=== PATIENT | female | born 1990 | race Caucasian/White ===

== ENCOUNTER 2016-08-08 14:33 | Emergency (ER) | payer BC, OTHER ==
[~2016-08-08] VITALS: Ht 170.1 cm; Wt 106.1 kg
[~2016-08-08 14:33] MED LIST: ABILIFY10 MG PO; ABILIFY30 MG; ABILIFY30 MG PO; AMOXIL500 MG PO; ANAPROX DS550 MG PO; AUGMENTIN PO; BUSPAR5 MG PO; CYCLOBENZAPRINE5 M3 PO; DOLOBID500 MG PO; HYDROCODONE BIT1 T11 PO; IBU800 M1 PO; K-Dur 20MEQ20 MEQ PO; KETOROLAC10 MG PO; MACROBID100 M1 PO; MEDROL DOSEPAK4 MG PO; MOTRIN800 MG PO; Motrin,Rufen800 MG PO; NAPROSYN500 MG PO; NKHM PO; PERCOCET 325 MG1 TA2 PO; PRENATAL1 TA1 PO; PREVACID15 MG PO; PRILOSEC10 MG PO; PRILOSEC20 M1 PO; PROAIR HFA0.09 MG/AC IH; SEROQUEL XR150 MG PO; SPRINTEC 35 MCG1 TA1 PO; TRAMADOL50 MG PO; TRAZODONE100 MG PO; VENTOLIN0.09 MG/AC INH; VISTARIL25 MG PO; WELLBUTRIN XL300 MG; WELLBUTRIN XL300 MG PO; Wellbutrin Sr100 MG PO; ZITHROMAX Z PA250 MG PO; ZOFRAN ODT4 MG SL
[2016-08-08] MEDS ORDERED: TRINTELLIX10 MG PEG (14:44)
[2016-08-08] MEDS ORDERED: LATU20TA PO (14:44)
[2016-08-08] MEDS ORDERED: AMOXICILLIN500 M2 PO (16:53)
[2016-08-08] MEDS ORDERED: MEDROL DOSEPAK4 MG PO (16:53)
[2016-08-08] MEDS ORDERED: ZYRTEC10 MG PO (16:53)
== END 2016-08-08 17:13 | disposition home or self-care (01) ==
LOC: ED 14:33
DX: J45.909 Unspecified asthma, uncomplicated (principal); Z79.899 Other long term (current) drug therapy

== ENCOUNTER → 2017-03-16 | Emergency (ER) | payer BC ==
[~2017-03-16] VITALS: Ht 170.1 cm; Wt 101.6 kg
[~2017-03-16] MED LIST changes: +AMOXICILLIN500 M2 PO; +DIFLUCAN150 MG PO; +LATU20TA PO; +LEVAQUIN250 M1 PO; +TRINTELLIX10 MG PEG; +VIBRAMYCIN100 MG PO; +ZYRTEC10 MG PO
[2017-03-16 09:35] LABS: BILIRUBIN 1+ (NEGATIVE); BLOOD 2+ (NEGATIVE); CLARITY CLEAR (CLEAR); COLOR YELLOW (YELLOW); GLUCOSE TRACE (NEGATIVE); KETONE TRACE (NEGATIVE); LEUKO ESTERASE 1+ (NEGATIVE); NITRITE NEGATIVE (NEGATIVE); PH 5.5 (5.0-9.0); SPECIFIC GRAVITY >= 1.030 (1.005-1.030); UROBILINOGEN 0.2 E.U./dl (0.2-1.0)
[2017-03-16 09:47] LABS: BACTERIA TRACE; MUCOUS TRACE; WBC 31-40 wbc/hpf (0-5)
== END ==
LOC: ED 08:43
PROVIDERS: Emergency Medicine
DX: N39.0 Urinary tract infection, site not specified (principal); N76.2 Acute vulvitis; K21.9 Gastro-esophageal reflux disease without esophagitis; E87.6 Hypokalemia; F10.10 Alcohol abuse, uncomplicated; Z79.899 Other long term (current) drug therapy

== ENCOUNTER 2017-04-02 19:34 | Inpatient (IN) | payer BC ==
[~2017-04-02] VITALS: Ht 170.1 cm; Wt 100.2 kg
--- NOTE | ~2017-04-02 | PR ---
[place], [place] PROGRESS NOTE NAME: YELENA JOHNSTON [facility] #: [id number] UNIT #: [id number] ROOM: 421 DOCTOR: CHRIS BLANDON MD BIRTHDATE: [birth year] DOS: 04/04/2017 SUBJECTIVE: The patient was seen at her bedside today, 04/04/2017, for followup of her acute pericarditis. She is a 26-year-old woman who has no previous history of heart disease. She presented with a 4-day history of a nonproductive cough along with pleuritic chest pain, which was worse when she laid flat. Her electrocardiogram was consistent with a diagnosis of pericarditis. She did have a slight elevation in troponin as well, suggesting a mild pericarditis. Troponin elevated as high as 1.13 before falling back to 1.04. I reviewed her echocardiogram today. She has a normal sized left ventricle with normal wall motion and systolic function. Diastole is also normal. There is no significant valve abnormality. She does have a small pericardial effusion and thickening of the pericardium, consistent with pericarditis. She does not show any signs of tamponade. PHYSICAL EXAMINATION: VITAL SIGNS: She does have a pulse of 100, which is regular, blood pressure is 116/75. She is afebrile. NECK: Supple. She has no jugular distention. Carotids are full. LUNGS: Respirations are unlabored. Her chest is clear. HEART: Has a regular, fairly rapid rhythm. She has a fourth heart sound, but no third heart sound. The PMI is not displaced. I could not hear a pericardial rub. ABDOMEN: Soft and normally active. EXTREMITIES: Showed no edema. IMPRESSION: I am somewhat concerned about her tachycardia, but she does not have any other clinical signs or echocardiographic findings to suggest tamponade. Her echocardiogram today especially showed only a small pericardial effusion. I told her that she should hydrate well and that we should monitor at least one more night, but she is extremely anxious for discharge. She is concerned about the welfare of her 4-year-old child who does have autism and is at home with family. I would keep her on colchicine for a total of 3 months. Her ibuprofen can be stopped a week after her symptoms resolve and can be resumed if needed. She probably should have another echo in a month to make sure that her pericardium is healing appropriately. I thank the hospitalist group for asking our advice regarding her care. [place], [place] PROGRESS NOTE NAME: YELENA JOHNSTON [facility] UNIT #: [id number] ROOM: 421 DOCTOR: CHRIS BLANDON MD BIRTHDATE: [birth year] CHRIS BLANDON MD CM:LISANDRO [phone] CHRIS BLANDON MD 04/04/17 2248 interface
[2017-04-02 20:13] LABS: BASO # 0.1 10*3/uL (0.0-0.1); BASO % 0.8 % (0.0-1.0); EOS # 0.1 10*3/uL (0.0-0.4); EOS % 1.2 % (1.0-4.0); HEMATOCRIT 41.2 % (37.0-47.0); HEMOGLOBIN 14.3 g/dl (12.0-16.0); LYMPH # 2.1 10*3/uL (1.3-4.4); LYMPH % 24.9 % (27.0-41.0); MEAN CELL VOLUME 82.7 fl (81.0-99.0); MEAN CORPUSCULAR HGB 28.7 pg (27.0-31.0); MEAN CORPUSCULAR HGB CONC 34.7 g/dl (33.0-37.0); MEAN PLATELET VOLUME 10.6 fl (9.6-12.3); MONO # 0.9 10*3/uL (0.1-1.0); NEUT # 5.2 10*3/uL (2.3-7.9); NEUT % 61.7 % (47.0-73.0); PLATELET COUNT AUTOMATED 226 10*3/uL (130-400); RED BLOOD COUNT 4.98 10*6/uL (4.10-5.10); RED CELL DISTRI WIDTH 12.6 % (0-14.5); WHITE BLOOD COUNT 8.4 10*3/uL (4.8-10.8)
[2017-04-02 20:24] LABS: ACT PARTIAL THROMBO TIME 23.9 SECONDS (20.8-31.5); INTERNATIONAL NORM RATIO 1.1 (2.0-3.5)
[2017-04-02 20:35] LABS: ALBUMIN 3.4 gm/dl (3.1-4.5); ALKALINE PHOSPHATASE 81 U/L (45-117); BUN 8 mg/dl (7-24); CHLORIDE 103 mmol/L (98-107); CREATININE 0.82 mg/dL (0.55-1.02); POTASSIUM 3.5 mmol/L (3.5-5.1); SGOT/AST 18 IU/L (3-35); SGPT/ALT 16 U/L (12-78); SODIUM 138 mmol/L (136-145); TOTAL PROTEIN 7.5 gm/dL (6.4-8.2)
[2017-04-02 20:45] LABS: TROPONIN I 0.922 ng/ml (<0.045)
--- NOTE | 2017-04-02 20:48 | NUR ---
CRITICAL TROPONIN GIVEN RAUDEL CHAMBERS AND HORACE MIDDLETON
[2017-04-02 21:37] VITALS: BP 137/93
[2017-04-02 22:46] VITALS: BP 110/74
--- NOTE | 2017-04-02 23:13 | NUR ---
A 26, admitted to 4E, under the services of ALONSO Ren DO with a diagnosis of PERICARDITIS. Chief complaint is COUGH CONGESTED, CHEST PAIN. Patient arrived via ambulatory from ER. Monitor applied. Initial assessment completed. Vital signs taken and recorded. ALONSO REN DO notified of admission to the unit. Orders received. See assessment for past medical history, medications and allergies. Patient and/or family oriented to unit. [facility] visitation policy reviewed. Clothing/patient valuable form completed. LELE BANSAL
[2017-04-02 23:20] VITALS: BP 122/76
[2017-04-02] MEDS ORDERED: ABILIFY15 MG PO (23:44)
[2017-04-02] MEDS ORDERED: BUPROPION HCL300 MG PO (23:45)
--- NOTE | 2017-04-03 00:22 | NUR ---
CARDIOLOGY ANSWERING SERVICE CONTACTED, AWAITING CALL BACK.
--- NOTE | 2017-04-03 01:30 | NUR ---
CARDIOLOGY CALLING SERVICE CONTACTED, AWAITING CALL BACK.
--- NOTE | 2017-04-03 01:35 | NUR ---
DR. BANSAL RETURNED CALL, WILL BE IN TO SEE PT.
[2017-04-03 02:41] LABS: BASO # 0.1 10*3/uL (0.0-0.1); BASO % 0.7 % (0.0-1.0); EOS # 0.1 10*3/uL (0.0-0.4); EOS % 1.9 % (1.0-4.0); HEMATOCRIT 38.7 % (37.0-47.0); HEMOGLOBIN 13.4 g/dl (12.0-16.0); LYMPH # 2.5 10*3/uL (1.3-4.4); MEAN CORPUSCULAR HGB 28.8 pg (27.0-31.0); MEAN CORPUSCULAR HGB CONC 34.6 g/dl (33.0-37.0); MEAN PLATELET VOLUME 10.4 fl (9.6-12.3); MONO # 0.8 10*3/uL (0.1-1.0); MONO % 11.3 % (3.0-9.0); NEUT # 3.7 10*3/uL (2.3-7.9); PLATELET COUNT AUTOMATED 194 10*3/uL (130-400); RED BLOOD COUNT 4.66 10*6/uL (4.10-5.10); RED CELL DISTRI WIDTH 12.8 % (0-14.5); WHITE BLOOD COUNT 7.2 10*3/uL (4.8-10.8)
[2017-04-03 02:53] LABS: BUN 7 mg/dl (7-24); CHLORIDE 102 mmol/L (98-107); CREATININE 0.77 mg/dL (0.55-1.02); POTASSIUM 3.2 mmol/L (3.5-5.1); SODIUM 139 mmol/L (136-145)
[2017-04-03 02:58] LABS: CHOLESTEROL 134 mg/dL (<200); HDL CHOLESTEROL 51 mg/dl (40-60); LDL CHOLESTEROL 67 mg/dL (9-159); PHOSPHOROUS 3.7 mg/dL (2.5-4.9); TRIGLYCERIDES 79 mg/dl (<150); VLDL CHOLESTEROL 16 mg/dL (6-40)
--- NOTE | 2017-04-03 03:01 | NUR ---
DR. MORALES CONTACTED IN REGARDS TO PT. CRITICAL TROPONIN LEVEL, NO NEW ORDERS.
[2017-04-03 03:45] LABS: VITAMIN D, 25-HYDROXY 19.4 ng/mL (30-100)
[2017-04-03 08:00] VITALS: BP 112/68
[2017-04-03 16:00] VITALS: BP 110/57
--- NOTE | 2017-04-03 19:55 | NUR ---
PT. IS CURRENTLY RESTING IN BED AT THIS TIME. HOB IS ELEVATED SLIGHTLY, WITH CALL LIGHT IN REACH. BED IS LOW AND WHEELS ARE LOCKED. PT. DOES NOT VERBALIZE ANY COMPLAINTS AT THIS TIME AND NO DISTRESS IS NOTED. SEE SHIFT ASSESSMENT.
[2017-04-03 20:00] VITALS: BP 108/60
[2017-04-04] VITALS: BP 116/57
--- NOTE | 2017-04-04 03:15 | NUR ---
PT. C/O UPSET STOMACH AT THIS TIME. CRACKERS AND GINGERALE GIVEN PER PT. REQUEST, WILL CONTINUE TO MONITOR EFFECT.
--- NOTE | 2017-04-04 04:00 | NUR ---
PT. STATES UPSET STOMACH IS "STARTING TO LET UP" REQUESTED MORE SHANT ISHA AND CRACKERS, PT. REFUSED ZOFRAN AT THIS TIME. WILL CONTINUE TO MONITOR.
[2017-04-04 06:47] LABS: BASO % 0.6 % (0.0-1.0); EOS # 0.2 10*3/uL (0.0-0.4); EOS % 3.5 % (1.0-4.0); HEMATOCRIT 36.2 % (37.0-47.0); HEMOGLOBIN 12.1 g/dl (12.0-16.0); LYMPH # 1.8 10*3/uL (1.3-4.4); LYMPH % 33.9 % (27.0-41.0); MEAN CORPUSCULAR HGB CONC 33.4 g/dl (33.0-37.0); MEAN PLATELET VOLUME 10.8 fl (9.6-12.3); MONO # 0.4 10*3/uL (0.1-1.0); MONO % 7.4 % (3.0-9.0); NEUT % 54.2 % (47.0-73.0); PLATELET COUNT AUTOMATED 180 10*3/uL (130-400); RED BLOOD COUNT 4.17 10*6/uL (4.10-5.10); RED CELL DISTRI WIDTH 13.1 % (0-14.5); WHITE BLOOD COUNT 5.4 10*3/uL (4.8-10.8)
[2017-04-04 06:48] LABS: BUN 6 mg/dl (7-24); CHLORIDE 107 mmol/L (98-107); CREATININE 0.71 mg/dL (0.55-1.02); POTASSIUM 3.9 mmol/L (3.5-5.1); SODIUM 141 mmol/L (136-145)
[2017-04-04 06:49] LABS: MEAN CELL VOLUME 86.8 fl (81.0-99.0)
--- NOTE | 2017-04-04 07:54 | NUR ---
Shift chart check completed.
[2017-04-04 08:00] VITALS: BP 122/72
--- NOTE | 2017-04-04 09:09 | NUR ---
ASSESS MENT DONE - PATIENT DENIES CHEST PAIN/SOB
--- NOTE | 2017-04-04 09:23 | NUR ---
MED REC UPDATED. PER THE PATIENT HER INSURANCE WILLNOT FILL SCRIPT EXCEPT IN [place] - WILL CHECK TO SEE IF OUR PHARMACY CAN FILL IT FOR HER.
[2017-04-04 12:00] VITALS: BP 116/78
[2017-04-04 16:00] VITALS: BP 116/75
--- NOTE | 2017-04-04 18:17 | NUR ---
DR BLANDON HERE AND SPOKE WITH/ASSESSED PATIENT
--- NOTE | 2017-04-04 18:48 | NUR ---
DR OSULLIVAN MADE AWARE OF PATIENT LEAVING AMA AFTER SEEN BY DR BLANDON. ATTEMPTS TO GET PATIENT TO STAY UNSUCCESSFUL STATING THAT SHE NEEDED TO SEE HER SON. RISKS & FOLLOW UPS DISCUSSED. NUMBER FOR THE [facility] GIVEN TO THE PATIENT & SHE WAS ENCOURAGED TO CALL TO SET UP AN APPOINTMENT IF NO PCP. MEDICATION FROM PHARMACY RETRIEVED & RETURNED TO THE PATIENT.
--- NOTE | 2017-04-04 18:51 | NUR ---
Discharge instructions reviewed with patient/family. Patient receptive and verbalizes understanding. Follow-up care arranged. Written instructions given to patient/family. MARVEL HANEY
== END 2017-04-04 18:45 | disposition left against medical advice (07) | DRG 872 ==
LOC: ED 19:34 → 4E 22:35 → EDHOLD 22:35 → 4E 22:44
PROVIDERS: Internal Medicine; Internal Medicine Nephrology; Physician Assistant; ADMIT Internal Medicine
DX: A41.9 Sepsis, unspecified organism (principal); I30.0 Acute nonspecific idiopathic pericarditis; E44.1 Mild protein-calorie malnutrition; I31.3 Pericardial effusion (noninflammatory); R65.20 Severe sepsis without septic shock; K21.9 Gastro-esophageal reflux disease without esophagitis; N76.3 Subacute and chronic vulvitis; K29.50 Unspecified chronic gastritis without bleeding; E66.9 Obesity, unspecified; J45.909 Unspecified asthma, uncomplicated; Z53.21 Procedure and treatment not carried out due to patient leaving prior to being seen by health care provider; Z83.3 Family history of diabetes mellitus; Z82.49 Family history of ischemic heart disease and other diseases of the circulatory system; Z79.899 Other long term (current) drug therapy; Z68.34 Body mass index [BMI] 34.0-34.9, adult

== ENCOUNTER 2017-05-01 15:08 | Emergency (ER) | payer BC, MEDICAID ==
[~2017-05-01] VITALS: Wt 102.1 kg
[~2017-05-01 15:08] MED LIST changes: +ABILIFY15 MG PO; +BUPROPION HCL300 MG PO
[2017-05-01] MEDS ORDERED: ANAPROX DS550 MG PO (16:38)
== END 2017-05-01 16:46 | disposition home or self-care (01) ==
LOC: ED 15:08
DX: S90.32XA Contusion of left foot, initial encounter (principal); Z79.899 Other long term (current) drug therapy; Z90.89 Acquired absence of other organs; X58.XXXA Exposure to other specified factors, initial encounter; Y93.89 Activity, other specified; Y92.89 Other specified places as the place of occurrence of the external cause; Y99.8 Other external cause status

== ENCOUNTER 2017-05-11 21:23 | Emergency (ER) | payer BC, MEDICAID ==
[~2017-05-11] VITALS: Ht 167.6 cm; Wt 104.3 kg
[2017-05-11] MEDS ORDERED: ABILIFY20 MG PO (21:34)
[2017-05-11 21:58] LABS: BILIRUBIN NEGATIVE (NEGATIVE); BLOOD NEGATIVE (NEGATIVE); CLARITY SL CLOUDY (CLEAR); COLOR YELLOW (YELLOW); GLUCOSE 1+ (NEGATIVE); KETONE TRACE (NEGATIVE); LEUKO ESTERASE NEGATIVE (NEGATIVE); NITRITE NEGATIVE (NEGATIVE); UROBILINOGEN 0.2 E.U./dl (0.2-1.0)
[2017-05-11 22:01] LABS: BASO # 0.1 10*3/uL (0.0-0.1); BASO % 0.6 % (0.0-1.0); EOS # 0.2 10*3/uL (0.0-0.4); EOS % 2.1 % (1.0-4.0); HEMATOCRIT 42.5 % (37.0-47.0); HEMOGLOBIN 14.6 g/dl (12.0-16.0); LYMPH # 2.6 10*3/uL (1.3-4.4); LYMPH % 28.5 % (27.0-41.0); MEAN CELL VOLUME 84.3 fl (81.0-99.0); MEAN CORPUSCULAR HGB CONC 34.4 g/dl (33.0-37.0); MEAN PLATELET VOLUME 10.1 fl (9.6-12.3); MONO # 0.7 10*3/uL (0.1-1.0); MONO % 8.2 % (3.0-9.0); NEUT # 5.5 10*3/uL (2.3-7.9); NEUT % 60.3 % (47.0-73.0); PLATELET COUNT AUTOMATED 208 10*3/uL (130-400); RED BLOOD COUNT 5.04 10*6/uL (4.10-5.10); RED CELL DISTRI WIDTH 12.7 % (0-14.5); WHITE BLOOD COUNT 9.1 10*3/uL (4.8-10.8)
[2017-05-11 22:05] LABS: BACTERIA 1+; MUCOUS TRACE; WBC 0-2 wbc/hpf (0-5)
[2017-05-11 22:16] LABS: ALBUMIN 3.1 gm/dl (3.1-4.5); ALKALINE PHOSPHATASE 94 U/L (45-117); BUN 11 mg/dl (7-24); CHLORIDE 106 mmol/L (98-107); LIPASE 145 U/L (73-393); POTASSIUM 3.8 mmol/L (3.5-5.1); SGOT/AST 20 IU/L (3-35); SGPT/ALT 24 U/L (12-78); SODIUM 141 mmol/L (136-145); TOTAL PROTEIN 6.7 gm/dL (6.4-8.2)
[2017-05-11] MEDS ORDERED: ANAPROX DS550 MG PO (23:36)
== END 2017-05-11 23:50 | disposition home or self-care (01) ==
LOC: ED 21:23
PROVIDERS: Physician Assistant
DX: N83.201 Unspecified ovarian cyst, right side (principal); R10.31 Right lower quadrant pain; Z79.899 Other long term (current) drug therapy; Z90.89 Acquired absence of other organs; Z98.890 Other specified postprocedural states

== ENCOUNTER → 2017-06-06 | Outpatient (CLI) | payer MEDICAID ==
[~2017-06-06] MED LIST changes: +ABILIFY20 MG PO
[2017-06-06 11:35] LABS: BASO % 0.5 % (0.0-1.0); EOS # 0.1 10*3/uL (0.0-0.4); EOS % 1.4 % (1.0-4.0); HEMATOCRIT 42.7 % (37.0-47.0); HEMOGLOBIN 14.9 g/dl (12.0-16.0); LYMPH # 1.7 10*3/uL (1.3-4.4); LYMPH % 26.1 % (27.0-41.0); MEAN CELL VOLUME 83.1 fl (81.0-99.0); MEAN CORPUSCULAR HGB CONC 34.9 g/dl (33.0-37.0); MEAN PLATELET VOLUME 9.9 fl (9.6-12.3); MONO # 0.4 10*3/uL (0.1-1.0); NEUT # 4.3 10*3/uL (2.3-7.9); NEUT % 65.7 % (47.0-73.0); PLATELET COUNT AUTOMATED 201 10*3/uL (130-400); RED BLOOD COUNT 5.14 10*6/uL (4.10-5.10); RED CELL DISTRI WIDTH 12.7 % (0-14.5); WHITE BLOOD COUNT 6.5 10*3/uL (4.8-10.8)
[2017-06-06 11:56] LABS: ALBUMIN 3.4 gm/dl (3.1-4.5); ALKALINE PHOSPHATASE 71 U/L (45-117); BUN 13 mg/dl (7-24); CHLORIDE 104 mmol/L (98-107); CHOLESTEROL 199 mg/dL (<200); CREATININE 0.66 mg/dL (0.55-1.02); HDL CHOLESTEROL 58 mg/dl (40-60); LDL CHOLESTEROL 119 mg/dL (9-159); POTASSIUM 3.7 mmol/L (3.5-5.1); SGOT/AST 18 IU/L (3-35); SGPT/ALT 24 U/L (12-78); SODIUM 138 mmol/L (136-145); TOTAL PROTEIN 6.9 gm/dL (6.4-8.2); TRIGLYCERIDES 111 mg/dl (<150); VLDL CHOLESTEROL 22 mg/dL (6-40)
== END | disposition home or self-care (01) ==
LOC: US 05-24 09:00 → LAB 10:31 → US 10:31
PROVIDERS: Nurse Practitioner Family
DX: R10.9 Unspecified abdominal pain (principal); N83.291 Other ovarian cyst, right side; E66.9 Obesity, unspecified; N92.6 Irregular menstruation, unspecified

== ENCOUNTER 2017-07-01 17:23 | Emergency (ER) | payer MEDICAID ==
[~2017-07-01] VITALS: Ht 170.1 cm; Wt 108.9 kg
[2017-07-01] MEDS ORDERED: CLINDAMYCIN HC300 MG PO (17:47)
== END 2017-07-01 17:34 | disposition home or self-care (01) ==
LOC: ED 17:23
DX: K08.89 Other specified disorders of teeth and supporting structures (principal); J45.909 Unspecified asthma, uncomplicated; E66.9 Obesity, unspecified; Z68.39 Body mass index [BMI] 39.0-39.9, adult; Z79.899 Other long term (current) drug therapy

== ENCOUNTER → 2017-07-18 | Outpatient (CLI) | payer MEDICAID ==
[~2017-07-18] MED LIST changes: +CLINDAMYCIN HC300 MG PO
== END | disposition home or self-care (01) ==
LOC: US 07-10 11:00
DX: N83.209 Unspecified ovarian cyst, unspecified side (principal)

== ENCOUNTER 2017-08-06 12:45 | Emergency (ER) | payer MEDICAID ==
[~2017-08-06] VITALS: Ht 170.1 cm
== END 2017-08-06 13:06 | disposition left against medical advice (07) ==
LOC: ED 12:45
DX: Z32.00 Encounter for pregnancy test, result unknown (principal); Z53.21 Procedure and treatment not carried out due to patient leaving prior to being seen by health care provider; Z98.890 Other specified postprocedural states; Z79.899 Other long term (current) drug therapy

== ENCOUNTER 2017-08-09 16:24 | Emergency (ER) | payer MEDICAID ==
[~2017-08-09] VITALS: Ht 170.1 cm; Wt 108.0 kg
--- NOTE | ~2017-08-09 | EKG ---
[place], [place] ELECTROCARDIOGRAM REPORT NAME: YELENA JOHNSTON UNIT #: [id number] ROOM: DOCTOR: VINCE ADAMS MD BIRTHDATE: [birth year] DOS: 08/09/2017 TIME: 1717. IMPRESSION: 1. Sinus rhythm. 2. Normal QT interval. 3. No ischemic changes. VINCE ADAMS MD CM:EKGRPT:ELECTROCARDIOGRAM REPORT [id number] VINCE ADAMS MD
[2017-08-09 17:07] LABS: BASO % 0.6 % (0.0-1.0); EOS # 0.1 10*3/uL (0.0-0.4); EOS % 2.1 % (1.0-4.0); HEMATOCRIT 43.7 % (37.0-47.0); HEMOGLOBIN 15.1 g/dl (12.0-16.0); LYMPH # 1.8 10*3/uL (1.3-4.4); LYMPH % 28.6 % (27.0-41.0); MEAN CELL VOLUME 84.2 fl (81.0-99.0); MEAN CORPUSCULAR HGB 29.1 pg (27.0-31.0); MEAN CORPUSCULAR HGB CONC 34.6 g/dl (33.0-37.0); MEAN PLATELET VOLUME 10.3 fl (9.6-12.3); MONO # 0.4 10*3/uL (0.1-1.0); MONO % 5.6 % (3.0-9.0); NEUT # 3.9 10*3/uL (2.3-7.9); NEUT % 62.9 % (47.0-73.0); PLATELET COUNT AUTOMATED 221 10*3/uL (130-400); RED BLOOD COUNT 5.19 10*6/uL (4.10-5.10); RED CELL DISTRI WIDTH 12.8 % (0-14.5); WHITE BLOOD COUNT 6.3 10*3/uL (4.8-10.8)
[2017-08-09 17:21] LABS: BILIRUBIN NEGATIVE (NEGATIVE); BLOOD NEGATIVE (NEGATIVE); CLARITY CLEAR (CLEAR); COLOR YELLOW (YELLOW); GLUCOSE TRACE (NEGATIVE); KETONE NEGATIVE (NEGATIVE); LEUKO ESTERASE NEGATIVE (NEGATIVE); NITRITE NEGATIVE (NEGATIVE); PH 5.5 (5.0-9.0); SPECIFIC GRAVITY >= 1.030 (1.005-1.030); UROBILINOGEN 0.2 E.U./dl (0.2-1.0)
[2017-08-09 17:23] LABS: ALBUMIN 3.6 gm/dl (3.1-4.5); ALKALINE PHOSPHATASE 68 U/L (45-117); BUN 9 mg/dl (7-24); CHLORIDE 103 mmol/L (98-107); CREATININE 0.79 mg/dL (0.55-1.02); POTASSIUM 3.6 mmol/L (3.5-5.1); SGOT/AST 17 IU/L (3-35); SGPT/ALT 21 U/L (12-78); SODIUM 139 mmol/L (136-145); TOTAL PROTEIN 7.1 gm/dL (6.4-8.2)
[2017-08-09 17:26] LABS: ACT PARTIAL THROMBO TIME 22.6 SECONDS (20.8-31.5); BETA-HCG, QUANT < 1.0 mIU/mL (1-3)
[2017-08-09 17:35] LABS: BACTERIA 1+; MUCOUS TRACE; RBC 0-2 rbc/hpf (0-2)
== END 2017-08-09 18:05 | disposition home or self-care (01) ==
LOC: ED 16:24
PROVIDERS: Nurse Practitioner Family
DX: N94.6 Dysmenorrhea, unspecified (principal); R11.2 Nausea with vomiting, unspecified; R06.02 Shortness of breath; J45.909 Unspecified asthma, uncomplicated; K21.9 Gastro-esophageal reflux disease without esophagitis; E66.9 Obesity, unspecified; Z32.02 Encounter for pregnancy test, result negative

== ENCOUNTER 2017-08-11 13:49 | Emergency (ER) | payer MEDICAID ==
[~2017-08-11] VITALS: Ht 170.1 cm; Wt 108.0 kg
[2017-08-11 14:37] LABS: BASO % 0.6 % (0.0-1.0); EOS # 0.1 10*3/uL (0.0-0.4); EOS % 1.7 % (1.0-4.0); HEMATOCRIT 44.8 % (37.0-47.0); HEMOGLOBIN 15.4 g/dl (12.0-16.0); LYMPH # 1.2 10*3/uL (1.3-4.4); LYMPH % 24.1 % (27.0-41.0); MEAN CELL VOLUME 84.1 fl (81.0-99.0); MEAN CORPUSCULAR HGB 28.9 pg (27.0-31.0); MEAN CORPUSCULAR HGB CONC 34.4 g/dl (33.0-37.0); MEAN PLATELET VOLUME 10.3 fl (9.6-12.3); MONO # 0.3 10*3/uL (0.1-1.0); MONO % 6.5 % (3.0-9.0); NEUT # 3.2 10*3/uL (2.3-7.9); NEUT % 66.9 % (47.0-73.0); PLATELET COUNT AUTOMATED 180 10*3/uL (130-400); RED BLOOD COUNT 5.33 10*6/uL (4.10-5.10); RED CELL DISTRI WIDTH 12.8 % (0-14.5); WHITE BLOOD COUNT 4.8 10*3/uL (4.8-10.8)
[2017-08-11 14:57] LABS: ALBUMIN 3.6 gm/dl (3.1-4.5); ALKALINE PHOSPHATASE 71 U/L (45-117); BUN 8 mg/dl (7-24); CHLORIDE 106 mmol/L (98-107); CREATININE 0.75 mg/dL (0.55-1.02); SGOT/AST 15 IU/L (3-35); SGPT/ALT 20 U/L (12-78); SODIUM 140 mmol/L (136-145); TOTAL PROTEIN 7.3 gm/dL (6.4-8.2)
[2017-08-11 15:03] LABS: TROPONIN I < 0.015 ng/ml (<0.045)
[2017-08-11 15:49] LABS: BILIRUBIN NEGATIVE (NEGATIVE); BLOOD NEGATIVE (NEGATIVE); CLARITY SL CLOUDY (CLEAR); COLOR YELLOW (YELLOW); GLUCOSE NEGATIVE (NEGATIVE); KETONE TRACE (NEGATIVE); LEUKO ESTERASE NEGATIVE (NEGATIVE); NITRITE NEGATIVE (NEGATIVE); PH 5.5 (5.0-9.0); SPECIFIC GRAVITY >= 1.030 (1.005-1.030)
[2017-08-11 15:58] LABS: URINE AMPHETAMINES < 1000 (1000ng/ml); URINE BARBITURATES < 200 (200ng/ml); URINE BENZODIAZEPINES < 200 (200ng/ml); URINE CANNABINOIDS (THC) < 50 (50ng/ml); URINE COCAINE < 300 (300ng/ml); URINE METHADONE < 300 (300ng/ml); URINE OPIATES < 300 (300ng/ml)
[2017-08-11 16:01] LABS: URINE PHENCYCLIDINE < 25 (25ng/ml)
[2017-08-11 16:06] LABS: BACTERIA TRACE; EPITHELIAL CELLS 15-20; MUCOUS TRACE; RBC 0-2 rbc/hpf (0-2)
== END 2017-08-11 16:33 | disposition home or self-care (01) ==
LOC: ED 13:49
PROVIDERS: Emergency Medicine
DX: T43.591A Poisoning by other antipsychotics and neuroleptics, accidental (unintentional), initial encounter (principal); J45.909 Unspecified asthma, uncomplicated; K21.9 Gastro-esophageal reflux disease without esophagitis; E66.9 Obesity, unspecified; Z68.39 Body mass index [BMI] 39.0-39.9, adult; Z90.89 Acquired absence of other organs; Z98.890 Other specified postprocedural states; Z79.899 Other long term (current) drug therapy; Y92.9 Unspecified place or not applicable

== ENCOUNTER 2017-09-20 17:21 | Emergency (ER) | payer MEDICAID ==
[~2017-09-20] VITALS: Ht 167.6 cm; Wt 107.0 kg
[2017-09-20 18:17] LABS: BASO % 0.8 % (0.0-1.0); EOS # 0.1 10*3/uL (0.0-0.4); EOS % 2.7 % (1.0-4.0); HEMATOCRIT 44.7 % (37.0-47.0); LYMPH # 1.7 10*3/uL (1.3-4.4); LYMPH % 35.8 % (27.0-41.0); MEAN CELL VOLUME 85.8 fl (81.0-99.0); MEAN CORPUSCULAR HGB 28.8 pg (27.0-31.0); MEAN CORPUSCULAR HGB CONC 33.6 g/dl (33.0-37.0); MEAN PLATELET VOLUME 10.5 fl (9.6-12.3); MONO # 0.3 10*3/uL (0.1-1.0); MONO % 5.8 % (3.0-9.0); NEUT # 2.6 10*3/uL (2.3-7.9); NEUT % 54.7 % (47.0-73.0); PLATELET COUNT AUTOMATED 214 10*3/uL (130-400); RED BLOOD COUNT 5.21 10*6/uL (4.10-5.10); WHITE BLOOD COUNT 4.8 10*3/uL (4.8-10.8)
[2017-09-20 18:30] LABS: ACT PARTIAL THROMBO TIME 23.3 SECONDS (20.8-31.5)
[2017-09-20 18:34] LABS: ALBUMIN 3.5 gm/dl (3.1-4.5); ALKALINE PHOSPHATASE 68 U/L (45-117); BUN 10 mg/dl (7-24); CHLORIDE 105 mmol/L (98-107); CREATININE 0.88 mg/dL (0.55-1.02); LIPASE 131 U/L (73-393); POTASSIUM 3.7 mmol/L (3.5-5.1); SGOT/AST 20 IU/L (3-35); SGPT/ALT 21 U/L (12-78); SODIUM 140 mmol/L (136-145)
[2017-09-20 18:39] LABS: TROPONIN I < 0.015 ng/ml (<0.045)
[2017-09-20] MEDS ORDERED: ZITHROMAX250 MG PO (19:06)
[2017-09-20] MEDS ORDERED: MEDROL DOSEPAK4 MG PO (19:06)
[2017-09-20] MEDS ORDERED: PROAIR HFA8.5 GM INH (19:08)
== END 2017-09-20 19:12 | disposition home or self-care (01) ==
LOC: ED 17:21
PROVIDERS: Nurse Practitioner Family
DX: J40 Bronchitis, not specified as acute or chronic (principal); E66.9 Obesity, unspecified; K29.50 Unspecified chronic gastritis without bleeding; Z68.39 Body mass index [BMI] 39.0-39.9, adult; Z90.49 Acquired absence of other specified parts of digestive tract; Z98.890 Other specified postprocedural states

== ENCOUNTER 2018-01-24 12:24 | Emergency (ER) | payer OTHER ==
[~2018-01-24] VITALS: Ht 170.1 cm; Wt 104.3 kg
[~2018-01-24 12:24] MED LIST changes: +PROAIR HFA8.5 GM INH; +ZITHROMAX250 MG PO
[2018-01-24] MEDS ORDERED: PROZAC20 MG PO (12:26)
[2018-01-24] MEDS ORDERED: ZYPREXA5 M1 PO (12:27)
[2018-01-24] MEDS ORDERED: PRENATAL VITAM1 EAC4 PO (12:41)
[2018-01-24 12:54] LABS: BASO % 0.6 % (0.0-1.0); EOS # 0.2 10*3/uL (0.0-0.4); HEMOGLOBIN 14.2 g/dl (12.0-16.0); LYMPH # 2.3 10*3/uL (1.3-4.4); LYMPH % 35.6 % (27.0-41.0); MEAN CELL VOLUME 84.5 fl (81.0-99.0); MEAN CORPUSCULAR HGB 29.3 pg (27.0-31.0); MEAN CORPUSCULAR HGB CONC 34.6 g/dl (33.0-37.0); MEAN PLATELET VOLUME 9.9 fl (9.6-12.3); MONO # 0.6 10*3/uL (0.1-1.0); MONO % 9.8 % (3.0-9.0); NEUT # 3.3 10*3/uL (2.3-7.9); NEUT % 50.8 % (47.0-73.0); PLATELET COUNT AUTOMATED 188 10*3/uL (130-400); RED BLOOD COUNT 4.85 10*6/uL (4.10-5.10); RED CELL DISTRI WIDTH 13.3 % (0-14.5); WHITE BLOOD COUNT 6.4 10*3/uL (4.8-10.8)
[2018-01-24 12:59] LABS: BILIRUBIN NEGATIVE (NEGATIVE); BLOOD NEGATIVE (NEGATIVE); CLARITY CLEAR (CLEAR); COLOR YELLOW (YELLOW); GLUCOSE 1+ (NEGATIVE); KETONE NEGATIVE (NEGATIVE); LEUKO ESTERASE NEGATIVE (NEGATIVE); NITRITE NEGATIVE (NEGATIVE); PH 5.5 (5.0-9.0); SPECIFIC GRAVITY 1.025 (1.005-1.030); UROBILINOGEN 0.2 E.U./dl (0.2-1.0)
[2018-01-24 13:08] LABS: ALBUMIN 3.4 gm/dl (3.1-4.5); ALKALINE PHOSPHATASE 75 U/L (45-117); BUN 10 mg/dl (7-24); CHLORIDE 108 mmol/L (98-107); CREATININE 0.71 mg/dL (0.55-1.02); POTASSIUM 3.6 mmol/L (3.5-5.1); SGOT/AST 31 IU/L (3-35); SGPT/ALT 47 U/L (12-78); SODIUM 140 mmol/L (136-145); TOTAL PROTEIN 6.8 gm/dL (6.4-8.2)
[2018-03-24] MEDS ORDERED: CEPHALEXIN500 M1 PO (14:43)
== END 2018-01-24 13:50 | disposition home or self-care (01) ==
LOC: ED 12:24
PROVIDERS: Nurse Practitioner Family
DX: Z32.01 Encounter for pregnancy test, result positive (principal); J45.909 Unspecified asthma, uncomplicated; K21.9 Gastro-esophageal reflux disease without esophagitis; E66.9 Obesity, unspecified; Z68.30 Body mass index [BMI] 30.0-30.9, adult; Z98.890 Other specified postprocedural states; Z79.899 Other long term (current) drug therapy

== ENCOUNTER 2018-02-23 21:05 | Emergency (ER) | payer OTHER ==
[~2018-02-23] VITALS: Ht 167.6 cm; Wt 113.4 kg
[~2018-02-23 21:05] MED LIST changes: +PRENATAL VITAM1 EAC4 PO; +PROZAC20 MG PO; +ZYPREXA5 M1 PO
[2018-02-23 21:49] LABS: BASO % 0.4 % (0.0-1.0); EOS # 0.1 10*3/uL (0.0-0.4); EOS % 1.8 % (1.0-4.0); HEMATOCRIT 40.8 % (37.0-47.0); LYMPH # 2.3 10*3/uL (1.3-4.4); LYMPH % 29.4 % (27.0-41.0); MEAN CELL VOLUME 85.9 fl (81.0-99.0); MEAN CORPUSCULAR HGB 29.5 pg (27.0-31.0); MEAN CORPUSCULAR HGB CONC 34.3 g/dl (33.0-37.0); MONO # 0.5 10*3/uL (0.1-1.0); MONO % 6.9 % (3.0-9.0); NEUT # 4.8 10*3/uL (2.3-7.9); NEUT % 61.4 % (47.0-73.0); PLATELET COUNT AUTOMATED 200 10*3/uL (130-400); RED BLOOD COUNT 4.75 10*6/uL (4.10-5.10); RED CELL DISTRI WIDTH 12.8 % (0-14.5); WHITE BLOOD COUNT 7.8 10*3/uL (4.8-10.8)
[2018-02-23 22:02] LABS: BILIRUBIN NEGATIVE (NEGATIVE); CLARITY CLEAR (CLEAR); COLOR YELLOW (YELLOW); GLUCOSE NEGATIVE (NEGATIVE); KETONE NEGATIVE (NEGATIVE); SPECIFIC GRAVITY > 1.030 (1.005-1.030)
[2018-02-23 22:03] LABS: BLOOD NEGATIVE (NEGATIVE); LEUKO ESTERASE NEGATIVE (NEGATIVE); NITRITE NEGATIVE (NEGATIVE); PH 5.5 (5.0-9.0); UROBILINOGEN 0.2 E.U./dl (0.2-1.0)
[2018-02-23 22:04] LABS: WBC 0-2 wbc/hpf (0-5)
[2018-02-23 22:05] LABS: ALBUMIN 3.2 gm/dl (3.1-4.5); ALKALINE PHOSPHATASE 65 U/L (45-117); BUN 9 mg/dl (7-24); CHLORIDE 107 mmol/L (98-107); CREATININE 0.58 mg/dL (0.55-1.02); POTASSIUM 3.7 mmol/L (3.5-5.1); SGOT/AST 10 IU/L (3-35); SGPT/ALT 21 U/L (12-78); SODIUM 141 mmol/L (136-145); TOTAL PROTEIN 7.1 gm/dL (6.4-8.2)
[2018-03-24] MEDS ORDERED: CEPHALEXIN500 M1 PO (14:43)
== END 2018-02-23 22:51 | disposition home or self-care (01) ==
LOC: ED 21:05
PROVIDERS: Nurse Practitioner Family
DX: O9A.211 Injury, poisoning and certain other consequences of external causes complicating pregnancy, first trimester (principal); O20.8 Other hemorrhage in early pregnancy; Z3A.01 Less than 8 weeks gestation of pregnancy; W10.8XXA Fall (on) (from) other stairs and steps, initial encounter; Y93.89 Activity, other specified; Y92.89 Other specified places as the place of occurrence of the external cause; Y99.8 Other external cause status

== ENCOUNTER 2018-06-13 12:21 | Emergency (ER) | payer MEDICARE ==
[~2018-06-13] VITALS: Ht 170.1 cm; Wt 109.8 kg
[~2018-06-13 12:21] MED LIST changes: +CEPHALEXIN500 M1 PO
[2018-06-13] MEDS ORDERED: ZOLOFT50 MG PO (12:23)
[2018-06-13] MEDS ORDERED: LATU20TA PO (12:23)
[2018-06-13] MEDS ORDERED: DELTASONE20 M1 PO (13:53)
[2018-06-13] MEDS ORDERED: ALBUTEROL2.5 MG/0.5 INH (13:53)
== END 2018-06-13 14:02 | disposition home or self-care (01) ==
LOC: ED 12:21
DX: O99.512 Diseases of the respiratory system complicating pregnancy, second trimester (principal); J45.909 Unspecified asthma, uncomplicated; E66.9 Obesity, unspecified; Z79.899 Other long term (current) drug therapy; Z3A.23 23 weeks gestation of pregnancy

== ENCOUNTER 2018-06-20 17:58 | Emergency (ER) | payer MEDICARE ==
[~2018-06-20] VITALS: Ht 167.6 cm; Wt 109.3 kg
[~2018-06-20 17:58] MED LIST changes: +ALBUTEROL2.5 MG/0.5 INH; +DELTASONE20 M1 PO; +ZOLOFT50 MG PO
[2018-06-20] MEDS ORDERED: CLARITIN10 MG PO (19:04)
[2018-06-20] MEDS ORDERED: PREDNISONE10 MG PO (19:04)
[2018-06-20] MEDS ORDERED: FLONASE ALLERG9.9 ML NAS (19:04)
[2018-06-20] MEDS ORDERED: AVPAK AZITHROM250 M1 PO (19:04)
== END 2018-06-20 19:35 | disposition home or self-care (01) ==
LOC: ED 17:58
DX: O99.512 Diseases of the respiratory system complicating pregnancy, second trimester (principal); J45.909 Unspecified asthma, uncomplicated; R03.0 Elevated blood-pressure reading, without diagnosis of hypertension; K21.9 Gastro-esophageal reflux disease without esophagitis; E66.9 Obesity, unspecified; Z79.899 Other long term (current) drug therapy; Z3A.24 24 weeks gestation of pregnancy

== ENCOUNTER → 2018-06-26 | Outpatient (CLI) | payer MEDICARE ==
[~2018-06-26] MED LIST changes: +AVPAK AZITHROM250 M1 PO; +CLARITIN10 MG PO; +FLONASE ALLERG9.9 ML NAS; +PREDNISONE10 MG PO
== END | disposition home or self-care (01) ==
LOC: US 16:49
DX: Z34.02 Encounter for supervision of normal first pregnancy, second trimester (principal); Z3A.25 25 weeks gestation of pregnancy

== ENCOUNTER → 2018-07-03 | Outpatient (CLI) | payer MEDICARE | END | disposition home or self-care (01) | LOC: LAB 07:31 | DX: R73.09 Other abnormal glucose (principal) ==

== ENCOUNTER → 2018-08-13 | Outpatient (CLI) | payer MEDICAID | END | disposition home or self-care (01) | LOC: US 12:08 | DX: O36.8130 Decreased fetal movements, third trimester, not applicable or unspecified (principal); Z3A.32 32 weeks gestation of pregnancy ==

== ENCOUNTER 2018-08-28 18:40 | Emergency (ER) | payer MEDICAID ==
[~2018-08-28] VITALS: Ht 167.6 cm; Wt 106.6 kg
[2018-08-28 19:17] LABS: BASO % 0.2 % (0.0-1.0); EOS # 0.1 10*3/uL (0.0-0.4); EOS % 1.6 % (1.0-4.0); HEMATOCRIT 38.1 % (37.0-47.0); HEMOGLOBIN 13.3 g/dl (12.0-16.0); LYMPH # 1.8 10*3/uL (1.3-4.4); LYMPH % 20.7 % (27.0-41.0); MEAN CORPUSCULAR HGB 30.4 pg (27.0-31.0); MEAN CORPUSCULAR HGB CONC 34.9 g/dl (33.0-37.0); MEAN PLATELET VOLUME 11.3 fl (9.6-12.3); MONO # 0.5 10*3/uL (0.1-1.0); MONO % 5.8 % (3.0-9.0); NEUT # 6.2 10*3/uL (2.3-7.9); NEUT % 71.4 % (47.0-73.0); PLATELET COUNT AUTOMATED 150 10*3/uL (130-400); RED BLOOD COUNT 4.38 10*6/uL (4.10-5.10); RED CELL DISTRI WIDTH 13.9 % (0-14.5); WHITE BLOOD COUNT 8.7 10*3/uL (4.8-10.8)
[2018-08-28 19:33] LABS: ALBUMIN 2.5 gm/dl (3.1-4.5); ALKALINE PHOSPHATASE 91 U/L (45-117); BUN 6 mg/dl (7-24); CHLORIDE 107 mmol/L (98-107); CREATININE 0.68 mg/dL (0.55-1.02); LIPASE 84 U/L (73-393); POTASSIUM 3.3 mmol/L (3.5-5.1); SGOT/AST 11 IU/L (3-35); SGPT/ALT 11 U/L (12-78); SODIUM 138 mmol/L (136-145); TOTAL PROTEIN 6.1 gm/dL (6.4-8.2)
== END 2018-08-28 20:36 | disposition left against medical advice (07) ==
LOC: ED 18:40
PROVIDERS: Physician Assistant
DX: O26.893 Other specified pregnancy related conditions, third trimester (principal); K92.0 Hematemesis; K30 Functional dyspepsia; Z3A.34 34 weeks gestation of pregnancy; Z79.899 Other long term (current) drug therapy; Z79.2 Long term (current) use of antibiotics

== ENCOUNTER → 2019-01-06 | Outpatient (CLI) | payer OTHER | END | disposition home or self-care (01) | LOC: LAB 13:45 | DX: Z63.79 Other stressful life events affecting family and household (principal) ==

== ENCOUNTER → 2019-03-02 | Outpatient (CLI) | payer OTHER ==
--- NOTE | ~2019-03-02 | PF ---
[place], [place] PULMONARY FUNCTION TEST [id number] UN[facility] #: [id number] ROOM: DOCTOR: SALVADOR VILLARREAL MD,ASHER BIRTHDATE: [birth year] DOS: 03/02/2019 ORDERED BY: Shahbaz Burnette, nurse practitioner. HISTORY: The patient recorded as 28-year-old female, height of 66 inches, weight of 236 pounds, BMI of 38. Testing was done for assessment of symptoms of shortness of breath. Productive cough was also reported as well. There were no past tobacco use. SPIROMETRY: The FVC 3.82 liters, 93% predicted value, FEV1 of 3.06 liters, 88% predicted value with 12% postbronchodilator improvement noted in the FEV1. Flow volume loop was noted consistent with mild reversible obstructive lung disease. LUNG VOLUME: Thoracic gas volume recorded 78%, residual volume 99%, total lung capacity 100%. The patient's airway resistance, passive conductance normal. lung diffusion recorded 77%. FINAL IMPRESSION: The current pulmonary function tests were noted, finding consistent bronchial asthma. ASHER FRANCO MD CM:PFREPORT:PULMONARY FUNCTION TEST [id number] ASHER VILLARREAL MD
== END | disposition home or self-care (01) ==
LOC: CP 10:26
DX: R06.02 Shortness of breath (principal)

== ENCOUNTER → 2019-03-31 | Outpatient (CLI) | payer OTHER ==
[~2019-03-31] MED LIST changes: +PROVENTIL HFA6.7 GM INH; +QVAR REDIHALE10.6 G1 INH
== END | disposition home or self-care (01) ==
LOC: LAB 07:38
DX: Z63.8 Other specified problems related to primary support group (principal)

== ENCOUNTER → 2019-04-06 | Day surgery (SDC) | payer OTHER ==
[2019-03-31 08:23] VITALS: BP 132/67
[~2019-04-06] VITALS: Ht 167.6 cm; Wt 104.3 kg
[~2019-04-06] MED LIST changes: +ALLEGRA-D 24 H1 EACH PO; +IBU800 MG PO; +NORCO 5-325 TA1 EACH PO; +PREDNISONE20 M1 PO; +TESSALON PERLE100 M1 PO
[2019-04-06 07:35] VITALS: BP 114/72
[2019-04-06 10:10] VITALS: BP 108/63
[2019-04-06 10:25] VITALS: BP 124/66; BP 125/71
[2019-04-06 10:40] VITALS: BP 132/76
== END | disposition home or self-care (01) ==
LOC: SDC 03-31 08:00
DX: Z30.2 Encounter for sterilization (principal); K21.9 Gastro-esophageal reflux disease without esophagitis; J45.909 Unspecified asthma, uncomplicated; F41.9 Anxiety disorder, unspecified; F32.9 Major depressive disorder, single episode, unspecified; Z98.890 Other specified postprocedural states; Z79.899 Other long term (current) drug therapy; Z82.5 Family history of asthma and other chronic lower respiratory diseases; Z83.3 Family history of diabetes mellitus; Z80.8 Family history of malignant neoplasm of other organs or systems

== ENCOUNTER 2019-04-28 13:37 | Emergency (ER) | payer OTHER ==
[~2019-04-28] VITALS: Ht 167.6 cm; Wt 108.9 kg
[~2019-04-28 13:37] MED LIST changes: -ALLEGRA-D 24 H1 EACH PO; -PREDNISONE20 M1 PO; -TESSALON PERLE100 M1 PO
[2019-04-28] MEDS ORDERED: ALLEGRA-D 24 H1 EACH PO (15:46)
[2019-04-28] MEDS ORDERED: PREDNISONE20 M1 PO (15:46)
[2019-04-28] MEDS ORDERED: TESSALON PERLE100 M1 PO (15:46)
== END 2019-04-28 16:00 | disposition home or self-care (01) ==
LOC: ED 13:37
DX: J11.1 Influenza due to unidentified influenza virus with other respiratory manifestations (principal); J45.909 Unspecified asthma, uncomplicated; K21.9 Gastro-esophageal reflux disease without esophagitis; Z79.899 Other long term (current) drug therapy

== ENCOUNTER 2019-06-27 16:51 | Emergency (ER) | payer OTHER ==
[~2019-06-27] VITALS: Ht 167.6 cm; Wt 115.7 kg
[~2019-06-27 16:51] MED LIST changes: +ALLEGRA-D 24 H1 EACH PO; +PREDNISONE20 M1 PO; +TESSALON PERLE100 M1 PO
[2019-06-27] MEDS ORDERED: Motrin,Rufen800 MG PO (18:10)
== END 2019-06-27 18:21 | disposition home or self-care (01) ==
LOC: ED 16:51
DX: M25.532 Pain in left wrist (principal); J45.909 Unspecified asthma, uncomplicated; K21.9 Gastro-esophageal reflux disease without esophagitis; Z79.899 Other long term (current) drug therapy; X50.9XXA Other and unspecified overexertion or strenuous movements or postures, initial encounter; Y93.I9 Activity, other involving external motion; Y92.488 Other paved roadways as the place of occurrence of the external cause; Y99.8 Other external cause status

== ENCOUNTER → 2019-09-29 | Outpatient (CLI) | payer OTHER | END | disposition home or self-care (01) | LOC: US 14:51 | DX: N83.201 Unspecified ovarian cyst, right side (principal); N83.202 Unspecified ovarian cyst, left side ==

== ENCOUNTER → 2019-12-10 | Outpatient (CLI) | payer OTHER | END | disposition home or self-care (01) | LOC: US 12-09 11:00 | DX: N83.201 Unspecified ovarian cyst, right side (principal); N83.202 Unspecified ovarian cyst, left side ==

== ENCOUNTER → 2019-12-30 | Outpatient (CLI) | payer OTHER | END | disposition home or self-care (01) | LOC: LAB 14:42 | DX: E83.51 Hypocalcemia (principal) ==

== ENCOUNTER → 2020-04-11 | Outpatient (CLI) | payer OTHER | END | disposition home or self-care (01) | LOC: RAD 15:37 | PROVIDERS: ATTEND Chiropractor Orthopedic | DX: M51.36 Other intervertebral disc degeneration, lumbar region (principal) ==

== ENCOUNTER → 2020-04-14 | Outpatient (CLI) | payer OTHER | END | disposition home or self-care (01) | LOC: COVID19 13:20 | PROVIDERS: ATTEND Family Medicine | DX: R05 Cough (principal); Z20.828 Contact with and (suspected) exposure to other viral communicable diseases ==

== ENCOUNTER → 2020-04-20 | Outpatient (CLI) | payer OTHER | END | disposition home or self-care (01) | LOC: COVID19 12:37 | PROVIDERS: ATTEND Nurse Practitioner Family | DX: R06.02 Shortness of breath (principal); Z20.828 Contact with and (suspected) exposure to other viral communicable diseases ==

== ENCOUNTER → 2020-05-16 | Outpatient (CLI) | payer OTHER | END | disposition home or self-care (01) | LOC: RAD 15:01 | PROVIDERS: ATTEND Nurse Practitioner Family | DX: R05 Cough (principal) ==

== ENCOUNTER → 2020-06-09 | Outpatient (CLI) | payer OTHER | END | disposition home or self-care (01) | LOC: CT 08:59 → CARD 08:59 → US 08:59 → CT 09:00 → US 11:00 | PROVIDERS: ATTEND Nurse Practitioner Family | DX: I65.23 Occlusion and stenosis of bilateral carotid arteries (principal); H53.483 Generalized contraction of visual field, bilateral; R40.4 Transient alteration of awareness; H53.123 Transient visual loss, bilateral; R07.9 Chest pain, unspecified ==

== ENCOUNTER → 2020-07-10 | Outpatient (CLI) | payer OTHER | END | disposition home or self-care (01) | LOC: US 14:30 | PROVIDERS: ATTEND Nurse Practitioner Women's Health | DX: N93.9 Abnormal uterine and vaginal bleeding, unspecified (principal) ==

== ENCOUNTER 2020-09-12 09:37 | Emergency (ER) | payer OTHER ==
[~2020-09-12] VITALS: Ht 170.1 cm; Wt 117.0 kg
[2020-09-12] MEDS ORDERED: METHOCARBAMOL500 M1 PO (14:20)
[2020-09-12] MEDS ORDERED: IBUPROFEN600 MG PO (14:20)
== END 2020-09-12 14:22 | disposition home or self-care (01) ==
LOC: ED 09:37
DX: S13.9XXA Sprain of joints and ligaments of unspecified parts of neck, initial encounter (principal); Z79.899 Other long term (current) drug therapy; Z90.89 Acquired absence of other organs; Z98.890 Other specified postprocedural states; X50.1XXA Overexertion from prolonged static or awkward postures, initial encounter; Y93.89 Activity, other specified; Y92.89 Other specified places as the place of occurrence of the external cause; Y99.8 Other external cause status

== ENCOUNTER 2021-05-23 12:03 | Emergency (ER) | payer OTHER ==
[~2021-05-23] VITALS: Ht 170.1 cm; Wt 122.5 kg
[~2021-05-23 12:03] MED LIST changes: +IBUPROFEN600 MG PO; +METHOCARBAMOL500 M1 PO
== END 2021-05-23 18:53 | disposition home or self-care (01) ==
LOC: ED 12:03
DX: S46.912A Strain of unspecified muscle, fascia and tendon at shoulder and upper arm level, left arm, initial encounter (principal); X50.1XXA Overexertion from prolonged static or awkward postures, initial encounter; Y93.89 Activity, other specified; Y92.89 Other specified places as the place of occurrence of the external cause; Y99.8 Other external cause status

== ENCOUNTER 2022-02-25 10:07 | Emergency (ER) | payer OTHER ==
[~2022-02-25] VITALS: Ht 170.1 cm; Wt 117.9 kg
[2022-02-25] MEDS ORDERED: MEDROL DOSEPAK4 MG PO (13:39)
[2022-02-25] MEDS ORDERED: TYLENOL325 M1 PO (13:39)
[2022-02-25] MEDS ORDERED: CYCLOBENZAPRINE10 MG PO (13:39)
== END 2022-02-25 13:51 | disposition home or self-care (01) ==
LOC: ED 10:07
DX: M54.41 Lumbago with sciatica, right side (principal); J45.909 Unspecified asthma, uncomplicated; K21.9 Gastro-esophageal reflux disease without esophagitis; E44.1 Mild protein-calorie malnutrition; E66.9 Obesity, unspecified; Z68.30 Body mass index [BMI] 30.0-30.9, adult; Z79.899 Other long term (current) drug therapy; Z87.42 Personal history of other diseases of the female genital tract; Z98.51 Tubal ligation status; Z90.89 Acquired absence of other organs; Z98.890 Other specified postprocedural states

== ENCOUNTER 2022-06-20 08:33 | Emergency (ER) | payer BC, OTHER ==
[~2022-06-20] VITALS: Ht 167.6 cm; Wt 90.7 kg
[~2022-06-20 08:33] MED LIST changes: +CYCLOBENZAPRINE10 MG PO; +TYLENOL325 M1 PO
[2022-06-20] MEDS ORDERED: VIBRA-TAB100 MG PO (08:57)
[2022-06-20] MEDS ORDERED: PREDNISONE10 MG PO (08:57)
[2022-06-20] MEDS ORDERED: PROVENTIL HFA6.7 GM PO (08:57)
== END 2022-06-20 09:01 | disposition home or self-care (01) ==
LOC: ED 08:33
DX: J45.901 Unspecified asthma with (acute) exacerbation (principal); Z90.89 Acquired absence of other organs; Z98.890 Other specified postprocedural states

== ENCOUNTER 2022-07-12 21:13 | Emergency (ER) | payer BC, OTHER ==
[~2022-07-12] VITALS: Wt 117.9 kg
[~2022-07-12 21:13] MED LIST changes: +PROVENTIL HFA6.7 GM PO; +VIBRA-TAB100 MG PO
[2022-07-12] MEDS ORDERED: BUSPAR5 MG PO (21:22)
[2022-07-12] MEDS ORDERED: PROVENTIL HFA6.7 GM INH (22:48)
[2022-07-12] MEDS ORDERED: ADVAIR 250/501 EA INH (22:48)
[2022-07-12] MEDS ORDERED: PREDNISONE20 M1 PO (22:48)
== END 2022-07-12 23:00 | disposition home or self-care (01) ==
LOC: ED 21:13
DX: J45.901 Unspecified asthma with (acute) exacerbation (principal); Z20.822 Contact with and (suspected) exposure to COVID-19; Z90.89 Acquired absence of other organs; Z98.890 Other specified postprocedural states

== ENCOUNTER 2022-07-14 20:38 | Emergency (ER) | payer BC, OTHER ==
[~2022-07-14 20:38] MED LIST changes: +ADVAIR 250/501 EA INH
[2022-07-14] MEDS ORDERED: GENTACIDIN5 ML NAS (21:20)
== END 2022-07-14 21:23 | disposition home or self-care (01) ==
LOC: ED 20:38
DX: H10.33 Unspecified acute conjunctivitis, bilateral (principal); J45.909 Unspecified asthma, uncomplicated; K21.9 Gastro-esophageal reflux disease without esophagitis; F31.9 Bipolar disorder, unspecified; Z98.890 Other specified postprocedural states; Z90.89 Acquired absence of other organs

== ENCOUNTER → 2022-08-21 | Outpatient (CLI) | payer OTHER ==
[~2022-08-21] MED LIST changes: +GENTACIDIN5 ML NAS
== END | disposition home or self-care (01) ==
LOC: D 08:51
PROVIDERS: ATTEND Nurse Practitioner Family
DX: E66.9 Obesity, unspecified (principal); Z68.30 Body mass index [BMI] 30.0-30.9, adult

== ENCOUNTER → 2022-08-23 | Outpatient (CLI) | payer OTHER | END | disposition home or self-care (01) | LOC: RAD 09:47 | PROVIDERS: ATTEND Nurse Practitioner Family | DX: M25.552 Pain in left hip (principal) ==

== ENCOUNTER → 2022-11-19 | Outpatient (CLI) | payer OTHER ==
[2022-11-19 10:50] LABS: BASO % 0.7 % (0.0-1.0); EOS # 0.2 10*3/uL (0.0-0.4); EOS % 2.7 % (1.0-4.0); LYMPH # 2.2 10*3/uL (1.3-4.4); LYMPH % 40.1 % (27.0-41.0); MEAN CELL VOLUME 82.5 fl (81.0-99.0); MEAN CORPUSCULAR HGB 29.5 pg (27.0-31.0); MEAN CORPUSCULAR HGB CONC 35.7 g/dl (33.0-37.0); MEAN PLATELET VOLUME 9.7 fl (9.6-12.3); MONO # 0.4 10*3/uL (0.1-1.0); MONO % 6.9 % (3.0-9.0); NEUT # 2.7 10*3/uL (2.3-7.9); NEUT % 49.4 % (47.0-73.0); PLATELET COUNT AUTOMATED 201 10*3/uL (130-400); RED BLOOD COUNT 5.09 10*6/uL (4.10-5.10); RED CELL DISTRI WIDTH 12.6 % (0-14.5); WHITE BLOOD COUNT 5.5 10*3/uL (4.8-10.8)
[2022-11-19 11:27] LABS: ALKALINE PHOSPHATASE 67 U/L (46-116); BUN 9 mg/dl (9-23); CHLORIDE 107 mmol/L (98-107); CHOLESTEROL 182 mg/dL (<200); LDL CHOLESTEROL 109 mg/dL (9-159); POTASSIUM 3.9 mmol/L (3.4-5.1); SGPT/ALT 27 U/L (10-49); TOTAL PROTEIN 6.3 gm/dL (6.0-8.0); TRIGLYCERIDES 139 mg/dl (<150)
== END | disposition home or self-care (01) ==
LOC: LAB 10:31
PROVIDERS: ATTEND Nurse Practitioner Family
DX: R07.81 Pleurodynia (principal); M79.601 Pain in right arm; Z86.79 Personal history of other diseases of the circulatory system

== ENCOUNTER 2022-12-14 21:40 | Emergency (ER) | payer OTHER ==
[2022-12-14] MEDS ORDERED: PREDNISONE10 MG PO (22:11)
[2022-12-14] MEDS ORDERED: VIBRAMYCIN100 MG PO (22:11)
[2022-12-14] MEDS ORDERED: CYCLOBENZAPRINE10 MG PO (22:11)
== END 2022-12-14 23:05 | disposition home or self-care (01) ==
LOC: ED 21:40
DX: S81.011A Laceration without foreign body, right knee, initial encounter (principal); J45.909 Unspecified asthma, uncomplicated; K21.9 Gastro-esophageal reflux disease without esophagitis; F31.9 Bipolar disorder, unspecified; Z90.89 Acquired absence of other organs; Z98.890 Other specified postprocedural states; W01.0XXA Fall on same level from slipping, tripping and stumbling without subsequent striking against object, initial encounter; Y93.89 Activity, other specified; Y92.89 Other specified places as the place of occurrence of the external cause; Y99.8 Other external cause status

== ENCOUNTER → 2023-01-15 | Outpatient (CLI) | payer OTHER ==
[2023-01-15 12:23] LABS: BASO # 0.1 10*3/uL (0.0-0.1); BASO % 0.8 % (0.0-1.0); EOS # 0.3 10*3/uL (0.0-0.4); EOS % 4.1 % (1.0-4.0); HEMATOCRIT 43.6 % (37.0-47.0); LYMPH # 1.7 10*3/uL (1.3-4.4); LYMPH % 25.6 % (27.0-41.0); MEAN CELL VOLUME 85.2 fl (81.0-99.0); MEAN CORPUSCULAR HGB 29.9 pg (27.0-31.0); MEAN CORPUSCULAR HGB CONC 35.1 g/dl (33.0-37.0); MEAN PLATELET VOLUME 10.2 fl (9.6-12.3); MONO # 0.5 10*3/uL (0.1-1.0); MONO % 7.8 % (3.0-9.0); NEUT % 61.2 % (47.0-73.0); PLATELET COUNT AUTOMATED 199 10*3/uL (130-400); RED BLOOD COUNT 5.12 10*6/uL (4.10-5.10); RED CELL DISTRI WIDTH 13.3 % (0-14.5); WHITE BLOOD COUNT 6.5 10*3/uL (4.8-10.8)
[2023-01-15 12:52] LABS: ALKALINE PHOSPHATASE 78 U/L (46-116); BUN 7 mg/dl (9-23); CHLORIDE 107 mmol/L (98-107); POTASSIUM 3.5 mmol/L (3.4-5.1); SGPT/ALT 36 U/L (10-49); TOTAL PROTEIN 6.6 gm/dL (6.0-8.0)
== END | disposition home or self-care (01) ==
LOC: LAB 11:38
PROVIDERS: ATTEND Nurse Practitioner Family
DX: J40 Bronchitis, not specified as acute or chronic (principal); R09.81 Nasal congestion; R05.8 Other specified cough; R53.83 Other fatigue; R06.02 Shortness of breath; R05.9 Cough, unspecified

== ENCOUNTER → 2023-02-21 | Outpatient (CLI) | payer OTHER ==
[2023-02-21 10:43] LABS: BASO # 0.1 10*3/uL (0.0-0.1); BASO % 0.8 % (0.0-1.0); EOS # 0.2 10*3/uL (0.0-0.4); EOS % 2.6 % (1.0-4.0); HEMATOCRIT 43.4 % (37.0-47.0); LYMPH # 1.7 10*3/uL (1.3-4.4); LYMPH % 22.4 % (27.0-41.0); MEAN CELL VOLUME 84.6 fl (81.0-99.0); MEAN CORPUSCULAR HGB 29.4 pg (27.0-31.0); MEAN CORPUSCULAR HGB CONC 34.8 g/dl (33.0-37.0); MEAN PLATELET VOLUME 10.5 fl (9.6-12.3); MONO # 0.5 10*3/uL (0.1-1.0); MONO % 6.9 % (3.0-9.0); NEUT # 5.1 10*3/uL (2.3-7.9); PLATELET COUNT AUTOMATED 210 10*3/uL (130-400); RED BLOOD COUNT 5.13 10*6/uL (4.10-5.10); RED CELL DISTRI WIDTH 13.1 % (0-14.5); WHITE BLOOD COUNT 7.7 10*3/uL (4.8-10.8)
[2023-02-21 11:17] LABS: ALKALINE PHOSPHATASE 72 U/L (46-116); BUN 7 mg/dl (9-23); CHLORIDE 102 mmol/L (98-107); POTASSIUM 4.1 mmol/L (3.4-5.1); SGPT/ALT 40 U/L (10-49); TOTAL PROTEIN 6.8 gm/dL (6.0-8.0)
== END | disposition home or self-care (01) ==
LOC: US 08:30 → LAB 08:50
PROVIDERS: ATTEND Nurse Practitioner Family
DX: R60.9 Edema, unspecified (principal); I73.9 Peripheral vascular disease, unspecified; R63.5 Abnormal weight gain

== ENCOUNTER → 2023-03-05 | Outpatient (CLI) | payer OTHER ==
[2023-03-05 11:42] LABS: TOTAL PROTEIN 6.3 gm/dL (6.0-8.0)
== END | disposition home or self-care (01) ==
LOC: LAB 10:59
PROVIDERS: ATTEND Nurse Practitioner Family
DX: R79.89 Other specified abnormal findings of blood chemistry (principal)

== ENCOUNTER → 2023-05-20 | Outpatient (CLI) | payer OTHER | END | disposition home or self-care (01) | LOC: CT 10:59 | PROVIDERS: ATTEND Internal Medicine Critical Care Medicine | DX: K76.0 Fatty (change of) liver, not elsewhere classified (principal); R16.1 Splenomegaly, not elsewhere classified; K44.9 Diaphragmatic hernia without obstruction or gangrene; J84.113 Idiopathic non-specific interstitial pneumonitis ==

== ENCOUNTER → 2023-07-28 | Outpatient (CLI) | payer OTHER ==
[2023-07-28 16:04] LABS: BASO # 0.1 10*3/uL (0.0-0.1); BASO % 0.8 % (0.0-1.0); EOS # 0.2 10*3/uL (0.0-0.4); EOS % 3.2 % (1.0-4.0); HEMATOCRIT 45.6 % (37.0-47.0); LYMPH # 2.1 10*3/uL (1.3-4.4); LYMPH % 32.1 % (27.0-41.0); MEAN CELL VOLUME 85.1 fl (81.0-99.0); MEAN CORPUSCULAR HGB 28.9 pg (27.0-31.0); MEAN PLATELET VOLUME 10.4 fl (9.6-12.3); MONO # 0.4 10*3/uL (0.1-1.0); MONO % 6.3 % (3.0-9.0); NEUT # 3.8 10*3/uL (2.3-7.9); NEUT % 57.4 % (47.0-73.0); PLATELET COUNT AUTOMATED 258 10*3/uL (130-400); RED BLOOD COUNT 5.36 10*6/uL (4.10-5.10); RED CELL DISTRI WIDTH 13.1 % (0-14.5); WHITE BLOOD COUNT 6.6 10*3/uL (4.8-10.8)
[2023-07-28 16:48] LABS: ALKALINE PHOSPHATASE 73 U/L (46-116); BUN 11 mg/dl (9-23); CHLORIDE 104 mmol/L (98-107); POTASSIUM 3.5 mmol/L (3.4-5.1); SGPT/ALT 69 U/L (5-49); TOTAL PROTEIN 6.8 gm/dL (6.0-8.0)
== END | disposition home or self-care (01) ==
LOC: LAB 14:50
PROVIDERS: ATTEND Nurse Practitioner Family
DX: F32.A Depression, unspecified (principal); G47.19 Other hypersomnia; Z91.89 Other specified personal risk factors, not elsewhere classified

== ENCOUNTER → 2023-08-04 | Outpatient (CLI) | payer OTHER | END | disposition home or self-care (01) | LOC: US 01:40 | PROVIDERS: ATTEND Nurse Practitioner Family | DX: K76.0 Fatty (change of) liver, not elsewhere classified (principal); R79.89 Other specified abnormal findings of blood chemistry ==

== ENCOUNTER → 2023-09-17 | Outpatient (CLI) | payer OTHER ==
[2023-09-17 15:34] LABS: HEMATOCRIT 44.5 % (37.0-47.0); MEAN CELL VOLUME 82.7 fl (81.0-99.0); MEAN CORPUSCULAR HGB CONC 35.1 g/dl (33.0-37.0); MEAN PLATELET VOLUME 10.2 fl (9.6-12.3); PLATELET COUNT AUTOMATED 233 10*3/uL (130-400); RED BLOOD COUNT 5.38 10*6/uL (4.10-5.10); RED CELL DISTRI WIDTH 12.3 % (0-14.5); RETICULOCYTE % 2.28 % (0.50-2.50); WHITE BLOOD COUNT 5.1 10*3/uL (4.8-10.8)
[2023-09-17 15:38] LABS: MANUAL DIFF REFLEX YES
[2023-09-17 15:56] LABS: ALKALINE PHOSPHATASE 80 U/L (46-116); BUN 10 mg/dl (9-23); CHLORIDE 100 mmol/L (98-107); POTASSIUM 3.2 mmol/L (3.4-5.1); SGPT/ALT 71 U/L (5-49); TOTAL PROTEIN 7.2 gm/dL (6.0-8.0)
[2023-09-17 16:09] LABS: PLATELET SUFFICIENCY NORMAL (NORMAL); TOTAL CELLS COUNTED 100 #CELLS
[2023-09-17 16:11] LABS: ROULEAUX SLIGHT
[2023-09-18 09:07] LABS: HEPATITIS B SURFACE AB Non Reactive (.); HEPATITIS B SURFACE AG Negative (Negative)
[2023-09-18 11:08] LABS: ALPHA-1-ANTITRYPSIN, SERUM 134 mg/dL (100-188)
[2023-09-18 14:09] LABS: ANTI-SMOOTH MUSCLE ANTIBODY 6 Units (0-19)
[2023-09-18 15:07] LABS: t-TRANSGLUTAMINASE (tTG) IGA <2 U/mL (0-3); t-TRANSGLUTAMINASE (tTG) IgG 3 U/mL (0-5)
== END | disposition home or self-care (01) ==
LOC: LAB 15:03
PROVIDERS: ATTEND Nurse Practitioner Family
DX: Z11.59 Encounter for screening for other viral diseases (principal); K76.0 Fatty (change of) liver, not elsewhere classified; R74.01 Elevation of levels of liver transaminase levels

== ENCOUNTER → 2024-03-08 | Outpatient (CLI) | payer OTHER ==
[2024-03-08 13:10] LABS: BASO # 0.1 10*3/uL (0.0-0.1); BASO % 0.9 % (0.0-1.0); EOS # 0.3 10*3/uL (0.0-0.4); EOS % 4.9 % (1.0-4.0); HEMATOCRIT 44.5 % (37.0-47.0); LYMPH # 1.6 10*3/uL (1.3-4.4); LYMPH % 27.8 % (27.0-41.0); MEAN CELL VOLUME 84.3 fl (81.0-99.0); MEAN CORPUSCULAR HGB 29.5 pg (27.0-31.0); MEAN CORPUSCULAR HGB CONC 35.1 g/dl (33.0-37.0); MEAN PLATELET VOLUME 10.3 fl (9.6-12.3); MONO # 0.4 10*3/uL (0.1-1.0); MONO % 6.5 % (3.0-9.0); NEUT # 3.4 10*3/uL (2.3-7.9); NEUT % 59.5 % (47.0-73.0); PLATELET COUNT AUTOMATED 215 10*3/uL (130-400); RED BLOOD COUNT 5.28 10*6/uL (4.10-5.10); RED CELL DISTRI WIDTH 12.4 % (0-14.5); WHITE BLOOD COUNT 5.7 10*3/uL (4.8-10.8)
[2024-03-08 13:34] LABS: ALKALINE PHOSPHATASE 67 U/L (46-116); BUN 12 mg/dl (9-23); CHLORIDE 102 mmol/L (98-107); POTASSIUM 4.4 mmol/L (3.4-5.1); SGPT/ALT 38 U/L (5-49); TOTAL PROTEIN 6.9 gm/dL (6.0-8.0)
== END | disposition home or self-care (01) ==
LOC: LAB 12:37
PROVIDERS: ATTEND Nurse Practitioner Family
DX: K91.2 Postsurgical malabsorption, not elsewhere classified (principal); L25.5 Unspecified contact dermatitis due to plants, except food; L29.9 Pruritus, unspecified; Z79.899 Other long term (current) drug therapy

== ENCOUNTER 2024-04-17 02:31 | Emergency (ER) | payer OTHER ==
[~2024-04-17] VITALS: Ht 167.6 cm; Wt 111.6 kg
[2024-04-17] MEDS ORDERED: Amoxicillin/Clavulanate Pota 875 MG TAB PO ONE (02:50)
[2024-04-17] MEDS ORDERED: AMOX-CLAV 875-1 EACH PO (02:51)
== END 2024-04-17 03:08 | disposition home or self-care (01) ==
LOC: ED 02:31
DX: J02.0 Streptococcal pharyngitis (principal); H92.02 Otalgia, left ear; K21.9 Gastro-esophageal reflux disease without esophagitis; F31.9 Bipolar disorder, unspecified; Z90.89 Acquired absence of other organs; Z98.890 Other specified postprocedural states

== ENCOUNTER → 2024-05-20 | Outpatient (CLI) | payer OTHER ==
[~2024-05-20] MED LIST changes: +AMOX-CLAV 875-1 EACH PO
[2024-05-20 08:52] LABS: BASO % 0.9 % (0.0-1.0); EOS # 0.2 10*3/uL (0.0-0.4); EOS % 3.6 % (1.0-4.0); MEAN CELL VOLUME 85.7 fl (81.0-99.0); MEAN CORPUSCULAR HGB 29.2 pg (27.0-31.0); MEAN PLATELET VOLUME 11.3 fl (9.6-12.3); MONO # 0.3 10*3/uL (0.1-1.0); NEUT # 2.2 10*3/uL (2.3-7.9); NEUT % 47.7 % (47.0-73.0); PLATELET COUNT AUTOMATED 197 10*3/uL (130-400); RED CELL DISTRI WIDTH 14.2 % (0-14.5); WHITE BLOOD COUNT 4.7 10*3/uL (4.8-10.8)
[2024-05-20 09:22] LABS: ALKALINE PHOSPHATASE 64 U/L (46-116); BUN 8 mg/dl (9-23); CHLORIDE 107 mmol/L (98-107); POTASSIUM 3.5 mmol/L (3.4-5.1); SGPT/ALT 20 U/L (5-49); TOTAL PROTEIN 6.4 gm/dL (6.0-8.0)
[2024-05-20 09:27] LABS: VITAMIN D, 25-HYDROXY 53.3 ng/mL (30-100)
== END | disposition home or self-care (01) ==
LOC: LAB 08:10
PROVIDERS: ATTEND Physician Assistant
DX: K91.2 Postsurgical malabsorption, not elsewhere classified (principal)

== ENCOUNTER 2024-08-01 17:15 | Emergency (ER) | payer OTHER ==
[~2024-08-01] VITALS: Ht 167.6 cm; Wt 93.0 kg
[2024-08-01] MEDS ORDERED: methylPREDNISolone sod succ 125 MG VIAL IM ONE (17:50)
[2024-08-01] MEDS ORDERED: PREDNISONE20 M1 PO (17:51)
== END 2024-08-01 18:07 | disposition home or self-care (01) ==
LOC: ED 17:15
DX: L23.7 Allergic contact dermatitis due to plants, except food (principal); Z90.89 Acquired absence of other organs; Z98.890 Other specified postprocedural states

== ENCOUNTER → 2024-08-05 | Outpatient (CLI) | payer OTHER ==
[2024-08-06 08:05] LABS: MUMPS ANTIBODIES, IGG <9.0 AU/mL (Immune >10.9); VARICELLA ZOSTER (VZV) IgG Reactive (Non Reactive)
[2024-08-07 14:04] LABS: TB1 Ag VALUE 0.01 IU/mL (.)
== END | disposition home or self-care (01) ==
LOC: LAB 14:20
PROVIDERS: ATTEND Nurse Practitioner Family
DX: Z01.89 Encounter for other specified special examinations (principal)

== ENCOUNTER → 2024-08-25 | Outpatient (CLI) | payer OTHER ==
[2024-08-25 08:46] LABS: BASO % 0.7 % (0.0-1.0); EOS # 0.2 10*3/uL (0.0-0.4); EOS % 4.7 % (1.0-4.0); HEMATOCRIT 40.1 % (37.0-47.0); MEAN CELL VOLUME 88.3 fl (81.0-99.0); MEAN CORPUSCULAR HGB 30.2 pg (27.0-31.0); MEAN CORPUSCULAR HGB CONC 34.2 g/dl (33.0-37.0); MEAN PLATELET VOLUME 11.2 fl (9.6-12.3); MONO # 0.4 10*3/uL (0.1-1.0); MONO % 7.8 % (3.0-9.0); NEUT # 2.5 10*3/uL (2.3-7.9); NEUT % 56.6 % (47.0-73.0); PLATELET COUNT AUTOMATED 172 10*3/uL (130-400); RED BLOOD COUNT 4.54 10*6/uL (4.10-5.10); WHITE BLOOD COUNT 4.5 10*3/uL (4.8-10.8)
[2024-08-25 08:58] LABS: ALKALINE PHOSPHATASE 67 U/L (46-116); BUN 6 mg/dl (9-23); CHLORIDE 107 mmol/L (98-107); POTASSIUM 3.6 mmol/L (3.4-5.1); SGPT/ALT 12 U/L (5-49); TOTAL PROTEIN 5.9 gm/dL (6.0-8.0)
[2024-08-25 09:13] LABS: VITAMIN D, 25-HYDROXY 46.2 ng/mL (30-100)
[2024-08-26 08:07] LABS: MUMPS ANTIBODIES, IGG <9.0 AU/mL (Immune >10.9)
== END | disposition home or self-care (01) ==
LOC: LAB 08:13
PROVIDERS: Nurse Practitioner Family; ATTEND Nurse Practitioner Adult Health
DX: K91.2 Postsurgical malabsorption, not elsewhere classified (principal); Z13.220 Encounter for screening for lipoid disorders; J45.909 Unspecified asthma, uncomplicated; Z13.29 Encounter for screening for other suspected endocrine disorder; Z23 Encounter for immunization; R21 Rash and other nonspecific skin eruption; Z91.09 Other allergy status, other than to drugs and biological substances

== ENCOUNTER → 2025-02-21 | Outpatient (CLI) | payer OTHER ==
[2025-02-21 12:00] LABS: BASO # 0.1 10*3/uL (0.0-0.1); BASO % 0.9 % (0.0-1.0); EOS # 0.7 10*3/uL (0.0-0.4); EOS % 9.5 % (1.0-4.0); MEAN CELL VOLUME 86.0 fl (81.0-99.0); MEAN CORPUSCULAR HGB 29.0 pg (27.0-31.0); MEAN PLATELET VOLUME 10.3 fl (9.6-12.3); MONO # 0.3 10*3/uL (0.1-1.0); MONO % 4.5 % (3.0-9.0); NEUT # 4.5 10*3/uL (2.3-7.9); NEUT % 60.2 % (47.0-73.0); NUCLEATED RED BLOOD CELL 0.0 % (0.0-0.0); NUCLEATED RED BLOOD CELL 0.0 10*3/uL (0.0-0.0); PLATELET COUNT AUTOMATED 203 10*3/uL (130-400); RED CELL DISTRI WIDTH 12.9 % (0-14.5)
[2025-02-21 12:29] LABS: BUN 8 mg/dl (9-23); LDL CHOLESTEROL 99 mg/dL (9-159); SGPT/ALT 8 U/L (5-49)
[2025-02-21 12:32] LABS: VITAMIN D, 25-HYDROXY 35.4 ng/mL (30-100)
== END | disposition home or self-care (01) ==
LOC: LAB 11:33
PROVIDERS: ATTEND Nurse Practitioner Adult Health
DX: K91.2 Postsurgical malabsorption, not elsewhere classified (principal)

== ENCOUNTER 2025-03-03 14:04 | Emergency (ER) | payer OTHER ==
[~2025-03-03] VITALS: Ht 167.6 cm; Wt 93.9 kg
[2025-03-03] MEDS ORDERED: IBUPROFEN 600 MG TAB PO ONE (14:35)
[2025-03-03] MEDS ORDERED: METHOCARBAMOL500 M1 PO (16:27)
== END 2025-03-03 17:13 | disposition home or self-care (01) ==
LOC: ED 14:04
DX: S80.02XA Contusion of left knee, initial encounter (principal); S80.01XA Contusion of right knee, initial encounter; S80.11XA Contusion of right lower leg, initial encounter; J45.909 Unspecified asthma, uncomplicated; K21.9 Gastro-esophageal reflux disease without esophagitis; F31.9 Bipolar disorder, unspecified; Z98.890 Other specified postprocedural states; Z90.89 Acquired absence of other organs; V49.9XXA Car occupant (driver) (passenger) injured in unspecified traffic accident, initial encounter; Y93.89 Activity, other specified; Y92.89 Other specified places as the place of occurrence of the external cause; Y99.8 Other external cause status